=== PATIENT | male | born 1965 | race Caucasian/White ===

== ENCOUNTER 2016-09-05 19:37 | Emergency (ER) | payer MEDICAID ==
[2015-12-09 14:01] VITALS: BMI 26.5
[~2016-09-05 19:37] MED LIST: ATARAX 25 MG TA25 MG PO; BUTRANS1 EAC1 TRANSDERM; CYMBALTA30 MG PO; ENDOCET 10-3251 TAB PO; EPIPEN0.3 MG/0.3 IM; HYDROCODONE-APA1 TAB PO; KENALOG 0.1 % O15 GM TOPICAL; NEURONTIN 300300 MG PO; PHENERGAN25 M1 PO; TRAZODONE HCL50 MG PO; ZYLOPRIM100 MG PO
[2016-09-05 20:34] LABS: BASOPHILS 0.3 % (0-2); EOSINOPHILS 1.4 % (0-7); HEMATOCRIT 40.2 % (42.0-54.0); HEMOGLOBIN 13.7 g/dL (13.5-17.5); IMMATURE GRANULOCYTES 0.3 % (0-5); MCH 32.9 pg (26.0-34.0); MCHC 34.1 g/dL (31.0-37.0); MCV 96.4 fL (80.0-100.0); MONOCYTES 9.6 % (2-11); NEUTROPHILS 71.4 % (40-80); RBC 4.17 10x6/uL (4.20-6.10); WBC 7.8 10x3/uL (4.8-10.8)
[2016-09-05 20:37] LABS: ALBUMIN 3.6 g/dL (3.4-5.0); ALKALINE PHOSPHATASE 81 U/L (46-116); ALT (SGPT) 18 U/L (10-68); BILIRUBIN - TOTAL 0.35 mg/dL (0.2-1.3); CALC OSMOLALITY 271 mosm/kg (275-300); CALCIUM 8.5 mg/dL (8.5-10.1); CARBON DIOXIDE 27.1 mmol/L (21.0-32.0); CHLORIDE - SERUM 101 mmol/L (98-107); CREATININE - SERUM 0.8 mg/dL (0.6-1.3); GLUCOSE 93 mg/dL (74-106); POTASSIUM - SERUM 3.9 mmol/L (3.5-5.1); PROTEIN - SERUM 7.3 g/dL (6.4-8.2); SODIUM 137 mmol/L (136-145); UREA NITROGEN 6 mg/dL (7-18); eGFR NON AFRICAN AMERICAN > 90 mL/min (90-120)
[2016-09-05 20:45] LABS: PLATELET COUNT 28 10x3/uL (130-400)
[2016-09-05 21:15] LABS: PLATELET ESTIMATE DECREASED
[2016-09-05 21:44] LABS: APPEARANCE CLEAR (CLEAR); COLOR YELLOW (YELLOW); LEUKOCYTE ESTERASE NEGATIVE (NEGATIVE); NITRITE NEGATIVE (NEGATIVE)
[2016-09-05 21:45] LABS: BILIRUBIN NEGATIVE (NEGATIVE); GLUCOSE NEGATIVE (NEGATIVE); KETONE NEGATIVE (NEGATIVE); PROTEIN NEGATIVE (NEGATIVE); UROBILINOGEN NORMAL (NORMAL)
== END 2016-09-05 22:21 | disposition home or self-care (01) ==
LOC: D.ER 19:37
PROVIDERS: Emergency Medicine; Physician Assistant Medical
DX: S50.811A Abrasion of right forearm, initial encounter (principal); X58.XXXA Exposure to other specified factors, initial encounter; D69.3 Immune thrombocytopenic purpura; F17.200 Nicotine dependence, unspecified, uncomplicated

== ENCOUNTER 2016-09-06 10:00 | Outpatient (CLI) | payer MEDICAID ==
[~2016-09-06] VITALS: Ht 180.3 cm; Wt 90.9 kg
[2016-09-06 10:23] VITALS: BP 116/96; Ht 180.3 cm; Wt 90.9 kg
--- NOTE | 2016-09-06 15:30 | NUR ---
1300 PLATELETS CHECKED @ BEDSIDE WITH MATCHING CORRALES TRANSFUSION #, HOSPITAL # PER Fuentes RETANA R.N. & Jayna FARIA. Jaylon.N.. Fuentes RETANA R.N. 1305 PLATELET INFUSION BEGUN BY Jayna FARIA R.N.. Fuentes RETANA R.N. 1315 PLATELET INFUSION COMPLETED. 0.9% NACL INFUSING TO FLUSH TUBING. PT AWAKE & ALERT. NO COMPLAINTS OF SHORTNESS OF BREATH, PAIN, OR ITCHING. Fuentes RETANA R.N. 1415 IV COMPLETED. IV DC'ED WITH CATH INTACT. NO COMPLAINTS VOICED. GIVEN DISCHARGE INSTRUCTIONS INCLUDING MED REC., & POST TRANSFUSION INSTRUCTIONS SHEET. PT VOICED UNDERSTANDING. RELEASED AMBULATORY FROM OPS. Fuentes RETANA R.N.
== END 2016-09-06 14:15 | disposition home or self-care (01) ==
LOC: D.OPS 10:00
DX: D64.9 Anemia, unspecified (principal)

== ENCOUNTER 2017-05-09 12:48 | Emergency (ER) | payer MEDICAID ==
[2016-09-06 10:23] VITALS: BMI 27.9
[2017-05-09 13:46] LABS: BASOPHILS 0.4 % (0-2); EOSINOPHILS 0.7 % (0-7); HEMATOCRIT 45.9 % (42.0-54.0); HEMOGLOBIN 15.7 g/dL (13.5-17.5); IMMATURE GRANULOCYTES 0.1 % (0-5); LYMPHOCYTES 11.8 % (15-50); MCH 33.5 pg (26.0-34.0); MCHC 34.2 g/dL (31.0-37.0); MCV 97.9 fL (80.0-100.0); MONOCYTES 10.8 % (2-11); NEUTROPHILS 76.2 % (40-80); RBC 4.69 10x6/uL (4.20-6.10); RDW 13.1 % (11.5-14.5); WBC 7.4 10x3/uL (4.8-10.8)
[2017-05-09 13:56] LABS: APTT 26.5 SECONDS (22.8-39.4); INR 1.03 (0.85-1.17); PROTIME 13.1 SECONDS (11.6-15.0)
[2017-05-09 14:07] LABS: ALBUMIN 3.9 g/dL (3.4-5.0); ALKALINE PHOSPHATASE 96 U/L (46-116); ALT (SGPT) 36 U/L (10-68); BILIRUBIN - TOTAL 1.03 mg/dL (0.2-1.3); CALC OSMOLALITY 277 mosm/kg (275-300); CALCIUM 9.5 mg/dL (8.5-10.1); CARBON DIOXIDE 23.8 mmol/L (21.0-32.0); CHLORIDE - SERUM 102 mmol/L (98-107); CREATININE - SERUM 0.9 mg/dL (0.6-1.3); GLUCOSE 114 mg/dL (74-106); LIPASE 216 U/L (73-393); PROTEIN - SERUM 8.1 g/dL (6.4-8.2); SODIUM 139 mmol/L (136-145); UREA NITROGEN 9 mg/dL (7-18); eGFR NON AFRICAN AMERICAN > 90 mL/min (90-120)
[2017-05-09 14:13] LABS: PLATELET ESTIMATE DECREASED
[2017-05-09 14:16] LABS: PLATELET COUNT 32 10x3/uL (130-400)
[2017-05-09 14:36] LABS: APPEARANCE CLEAR (CLEAR); BILIRUBIN 2+ (NEGATIVE); COLOR DK YELLOW (YELLOW); GLUCOSE NEGATIVE (NEGATIVE); KETONE MODERATE mg/dL (NEGATIVE); NITRITE NEGATIVE (NEGATIVE); PROTEIN NEGATIVE (NEGATIVE); UROBILINOGEN NORMAL (NORMAL)
[2017-05-09 14:41] LABS: UDS - AMPHET NEGATIVE QUAL (NEGATIVE); UDS - BARB NEGATIVE QUAL (NEGATIVE); UDS - BENZO POSITIVE QUAL (NEGATIVE); UDS - COCAINE NEGATIVE QUAL (NEGATIVE); UDS - OPIATE POSITIVE QUAL (NEGATIVE); UDS - PCP NEGATIVE QUAL (NEGATIVE); UDS - THC NEGATIVE QUAL (NEGATIVE)
[2017-05-09 14:45] LABS: RED CELLS - URINE 0-5 /hpf (0-5)
[2017-05-09 14:46] LABS: BACTERIA FEW /hpf (NONE SEEN)
[2017-05-09 14:47] LABS: MUCUS <1+ /lpf (NONE SEEN)
== END 2017-05-09 18:20 | disposition home or self-care (01) ==
LOC: D.ER 12:48
PROVIDERS: Family Medicine; Nurse Practitioner Family
DX: R10.9 Unspecified abdominal pain (principal); K86.9 Disease of pancreas, unspecified

== ENCOUNTER 2017-06-23 06:40 | Day surgery (SDC) | payer MEDICAID ==
[~2017-06-23] VITALS: Ht 180.3 cm; Wt 86.4 kg
--- NOTE | ~2017-06-23 | OP ---
PATIENT NAME: VISHNU CONLEY MEDICAL RECORD: [id number] :61 LOCATION:D.OPS ADMISSION DATE: SURGEON: MO BHAGAT MD DATE OF OPERATION: 06/23/2017 POSTOPERATIVE DIAGNOSES: 1. Epigastric pain. 2. Gastroesophageal reflux disease. 3. Hypertension. 4. Lupus. 5. Gout. 6. Pancreatic pseudocyst. 7. Traumatic diaphragmatic hernia. POSTOPERATIVE DIAGNOSES: 1. Epigastric pain. 2. Gastroesophageal reflux disease. 3. Hypertension. 4. Lupus. 5. Gout. 6. Pancreatic pseudocyst. 7. Traumatic diaphragmatic hernia. 8. Hiatal hernia. PROCEDURE: EGD with biopsy. SURGEON: Mo Bhagat MD REPORT OF PROCEDURE: An Olympus endoscope was advanced through the mouth and esophagus through the stomach and into the duodenum. We were able to get to the second or third portion of the duodenum and saw no evidence of any inflammation. As we pulled back, there was no sign of any masses, lesions, or ulcerations. We got to the pylorus of the stomach. There was some inflammation of the pylorus and body of the stomach. A biopsy was taken from the area around the pylorus. As we retroflexed the camera, we could see the patient had a small hiatal hernia, which was probably about a 1.5 to 2 cm in length. There were no masses, lesions or ulcerations visible in the stomach. The rugae of the fundus of the stomach were enlarged and swollen. The GE junction appeared normal in caliber and closed appropriately. Inside of the hiatal hernia, the patient had linear ulcerations present extending about 3 cm up the esophagus. Biopsies were taken times 2 from these areas of ulceration. There was some mild bleeding from these. We irrigated out the area thoroughly and assured there was no sign of any injury to surrounding structures. At this point, the insufflation was removed and the endoscope was pulled back slowly through the esophagus, revealing no signs of any masses, lesions, or strictures. COMPLICATIONS: None. CONDITION: Stable. ANESTHESIA: TIVA. BLOOD LOSS: Minimal. TRANSINT:[id number] Voice Confirmation ID: [id number] DOCUMENT ID: [id number] OPERATIVE REPORT [id number] VISHNU CONLEY MO BHAGAT MD at 0771 CC: [id number] DICTATION DATE: 06/23/17 1204 [employer]AL[employer] ENGINEER: 06/24/17 0313 [facility] 06/23/17 [facility] [address] [id number]
[2017-06-23 08:18] VITALS: BP 129/80; Ht 180.3 cm; Wt 86.4 kg
[2017-06-23 08:34] LABS: BASOPHILS 0.6 % (0-2); EOSINOPHILS 0.7 % (0-7); HEMATOCRIT 37.1 % (42.0-54.0); HEMOGLOBIN 12.9 g/dL (13.5-17.5); IMMATURE GRANULOCYTES 0.2 % (0-5); LYMPHOCYTES 23.6 % (15-50); MCH 33.9 pg (26.0-34.0); MCHC 34.8 g/dL (31.0-37.0); MCV 97.4 fL (80.0-100.0); MONOCYTES 9.6 % (2-11); NEUTROPHILS 65.3 % (40-80); RBC 3.81 10x6/uL (4.20-6.10); RDW 13.1 % (11.5-14.5); WBC 5.4 10x3/uL (4.8-10.8)
[2017-06-23 08:38] LABS: PLATELET COUNT 44 10x3/uL (130-400)
[2017-06-23 08:39] LABS: CALC OSMOLALITY 287 mosm/kg (275-300); CALCIUM 8.5 mg/dL (8.5-10.1); CARBON DIOXIDE 29.5 mmol/L (21.0-32.0); CHLORIDE - SERUM 107 mmol/L (98-107); CREATININE - SERUM 0.8 mg/dL (0.6-1.3); GLUCOSE 85 mg/dL (74-106); POTASSIUM - SERUM 4.3 mmol/L (3.5-5.1); SODIUM 145 mmol/L (136-145); UREA NITROGEN 12 mg/dL (7-18); eGFR NON AFRICAN AMERICAN > 90 mL/min (90-120)
[2017-06-23 08:49] LABS: PLATELET ESTIMATE DECREASED
== END 2017-06-23 12:40 | disposition home or self-care (01) ==
LOC: D.OPS 06:40
PROVIDERS: Surgery
DX: R10.13 Epigastric pain (principal); K21.9 Gastro-esophageal reflux disease without esophagitis; I10 Essential (primary) hypertension; M32.9 Systemic lupus erythematosus, unspecified; M10.9 Gout, unspecified; K86.3 Pseudocyst of pancreas; K44.9 Diaphragmatic hernia without obstruction or gangrene; Z01.812 Encounter for preprocedural laboratory examination

== ENCOUNTER → 2017-07-03 10:33 | Outpatient (CLI) | payer MEDICAID ==
[2017-06-23 08:18] VITALS: BMI 26.5
[2017-07-03 11:04] LABS: BASOPHILS 0.2 % (0-2); EOSINOPHILS 0.2 % (0-7); HEMATOCRIT 38.1 % (42.0-54.0); HEMOGLOBIN 13.4 g/dL (13.5-17.5); IMMATURE GRANULOCYTES 0.4 % (0-5); LYMPHOCYTES 12.7 % (15-50); MCH 33.5 pg (26.0-34.0); MCHC 35.2 g/dL (31.0-37.0); MCV 95.3 fL (80.0-100.0); MEAN PLATELET VOLUME 12.6 fL (7.4-10.4); MONOCYTES 6.1 % (2-11); NEUTROPHILS 80.4 % (40-80); RDW 14.2 % (11.5-14.5)
[2017-07-03 11:09] LABS: PLATELET COUNT 47 10x3/uL (130-400)
[2017-07-03 11:33] LABS: ALBUMIN 3.6 g/dL (3.4-5.0); ALT (SGPT) 44 U/L (10-68); CALC OSMOLALITY 282 mosm/kg (275-300); CALCIUM 9.1 mg/dL (8.5-10.1); CARBON DIOXIDE 26.2 mmol/L (21.0-32.0); CHLORIDE - SERUM 103 mmol/L (98-107); CREATININE - SERUM 0.7 mg/dL (0.6-1.3); GLUCOSE 90 mg/dL (74-106); LIPASE 249 U/L (73-393); POTASSIUM - SERUM 3.8 mmol/L (3.5-5.1); SODIUM 143 mmol/L (136-145); UREA NITROGEN 8 mg/dL (7-18); eGFR NON AFRICAN AMERICAN > 90 mL/min (90-120)
[2017-07-03 11:52] LABS: ALKALINE PHOSPHATASE 79 U/L (46-116); BILIRUBIN - TOTAL 0.41 mg/dL (0.2-1.3); PROTEIN - SERUM 7.2 g/dL (6.4-8.2)
[2017-07-03 11:53] LABS: AMYLASE - SERUM 300 U/L (25-115)
== END | disposition home or self-care (01) ==
LOC: D.LAB 10:33
PROVIDERS: Surgery
DX: R10.9 Unspecified abdominal pain (principal)

== ENCOUNTER → 2017-07-11 09:00 | Outpatient (CLI) | payer MEDICAID ==
[2017-06-23 08:18] VITALS: BMI 26.5
== END | disposition home or self-care (01) ==
LOC: D.OPS 09:00
DX: K21.9 Gastro-esophageal reflux disease without esophagitis (principal); K44.9 Diaphragmatic hernia without obstruction or gangrene; K22.70 Barrett's esophagus without dysplasia; Z01.810 Encounter for preprocedural cardiovascular examination; Z01.811 Encounter for preprocedural respiratory examination; Z01.812 Encounter for preprocedural laboratory examination

== ENCOUNTER 2017-10-03 05:20 | Day surgery (SDC) | payer MEDICAID ==
[2017-10-02 10:35] LABS: BASOPHILS 0.9 % (0-2); EOSINOPHILS 0.3 % (0-7); HEMATOCRIT 34.5 % (42.0-54.0); HEMOGLOBIN 12.2 g/dL (13.5-17.5); IMMATURE GRANULOCYTES 0.3 % (0-5); LYMPHOCYTES 16.2 % (15-50); MCH 34.7 pg (26.0-34.0); MCHC 35.4 g/dL (31.0-37.0); MEAN PLATELET VOLUME 11.2 fL (7.4-10.4); MONOCYTES 16.1 % (2-11); NEUTROPHILS 66.2 % (40-80); RBC 3.52 10x6/uL (4.20-6.10); RDW 14.1 % (11.5-14.5); WBC 5.9 10x3/uL (4.8-10.8)
[2017-10-02 10:44] LABS: CALC OSMOLALITY 274 mosm/kg (275-300); CALCIUM 8.4 mg/dL (8.5-10.1); CARBON DIOXIDE 30.3 mmol/L (21.0-32.0); CHLORIDE - SERUM 99 mmol/L (98-107); CREATININE - SERUM 0.6 mg/dL (0.6-1.3); GLUCOSE 108 mg/dL (74-106); POTASSIUM - SERUM 3.7 mmol/L (3.5-5.1); SODIUM 138 mmol/L (136-145); UREA NITROGEN 8 mg/dL (7-18); eGFR NON AFRICAN AMERICAN > 90 mL/min (90-120)
[2017-10-02 10:46] LABS: PLATELET COUNT 64 10x3/uL (130-400)
[~2017-10-03] VITALS: Ht 180.3 cm; Wt 84.5 kg
--- NOTE | ~2017-10-03 | OP ---
PATIENT NAME: VISHNU CONLEY MEDICAL RECORD: [id number] :61 LOCATION:D.OPS ADMISSION DATE: SURGEON: PARVEZ BHAGAT MD DATE OF OPERATION: 10/03/2017 PREOPERATIVE DIAGNOSES: 1. GERD with hiatal hernia. 2. Banda's esophagus. 3. Pancreatic pseudocyst. 4. Traumatic diaphragmatic hernia. 5. Lupus erythematosus. 6. Hypertension. 7. Gout. 8. Fibromyalgia. 9. [place] spotted fever. POSTOPERATIVE DIAGNOSES: 1. GERD with hiatal hernia. 2. Banda's esophagus. 3. Pancreatic pseudocyst. 4. Traumatic diaphragmatic hernia. 5. Lupus erythematosus. 6. Hypertension. 7. Gout. 8. Fibromyalgia. 9. [place] spotted fever. PROCEDURES: 1. Repair of 1.5-cm traumatic diaphragmatic hernia. 2. Drainage of 3-cm pancreatic tail pseudocyst. 3. Laparoscopic Sona with hiatal hernia repair. SURGEON: Parvez Bhagat MD TERRAZZO GRINDER: Candi Arreaga APRN REPORT OF OPERATION: The patient's abdomen was prepped and draped in sterile fashion. A Veress needle was inserted in the left upper quadrant and the abdomen was insufflated. An 11-mm Visiport trocar was inserted in the midline just above the umbilicus. At this point, we could visualize the Veress needle and there was no sign of any injury to bowel or surrounding structures. The Veress needle was removed. An 11-mm trocar was placed in the left subcostal region. We then placed a 5-mm trocar in the epigastrium, a 5-mm trocar in the right lateral subcostal region, and a final 5-mm trocar in the left lateral abdomen. The patient's left upper quadrant was inspected and a liver retractor was inserted to elevate the left lobe of the liver. We could see that there were some attachments to the left side of the diaphragm, consistent with known history of a traumatic diaphragmatic hernia. The peritoneal attachments were taken down, revealing fatty tissue within the hernia sac. All of this fatty tissue was eviscerated out of the hernia defect and eventually we were able to clear off the hernia defect and noted that it was about 1.5 cm in greatest diameter. We penetrated through the hernia defect with the scope and inspected inside the hernia sac. At this point, we could see there was no sign of any other foreign bodies or material inside the hernia defect. The hernia defect was then reapproximated transversely using interrupted #0 Polydeks times 3. OPERATIVE REPORT [id number] VISHNU CONLEY This made good approximation of the tissues. There was no sign of any bleeding at this point. We then took down the lesser omentum using Harmonic scalpel up to the right side of the right carole. 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 This was protected during dissection. We continued our dissection up to the right side of the right carole and extended up into the thoracic cavity. We took down all the attachments up in the thoracic cavity to free up the patient's fundus and distal esophagus. As we went as far anteriorly and posteriorly as possible, then we approached the greater curvature of the stomach and took down the short gastrics using Harmonic scalpel to the left side of the right carole. Again, we continued our dissection anteriorly and posteriorly as far as possible and up into the thoracic cavity. At this point, we had a 360-degree inspection of the distal esophagus and the fundus of the stomach easily rested in the abdomen including approximately 1-2 cm of the distal esophagus. At this point, when we were in the lesser sac, we rotated the stomach over and inspected the distal aspect of the pancreatic tail, where there was known to be at 3.3-cm cystic lesion near the pancreas. This appeared to be most consistent by imaging with a pancreatic pseudocyst, but it had not resolved despite continued observation. The peritoneum was dissected free from overlying the cyst. We were eventually able to dissect around the cystic cavity. We eventually penetrated into the cystic cavity and there was spillage of some cottage cheese-type farley material. This was irrigated and suctioned free until the cyst cavity was empty. I did not see any evidence of any drainage in the cyst. The large portion of the cyst wall was removed using Harmonic scalpel and sent off for permanent specimen. The area was irrigated out one last time and any bleeding that was found was treated with Harmonic scalpel. We then approached the hiatal hernia. This was reapproximated with interrupted #0 Polydeks times 2. We then performed a 360-degree Sona wrap of the fundus of the stomach around the distal esophagus. This was completed with interrupted #0 Polydeks times 3, incorporating a bite of the esophagus with the top and the bottom stitch. The wrap appeared to be in good position and did not appear to be too tight. The indwelling orogastric tube was easily removed after completion of the wrap. We inspected the area and saw no signs of any active surgical bleeding. At this point, a 15-Northern Irish Gregor drain was inserted through the left lateral 5-mm trocar with the distal tip of it placed in the pancreatic pseudocyst with the remainder into the remaining sac of the pancreatic pseudocyst. This was sutured into place with 3-0 nylon. At this point, the liver retractor was removed. The 11-mm trocar site fascias were closed with interrupted #0 Vicryls using a Ramirez-Melinda suture passer device. The ports and insufflation were then removed. The subcutaneous tissues were all irrigated out with normal saline and then infused with a total of 10 mL of 0.25% Marcaine with epinephrine. The skin incisions were closed with subcutaneous 5-0 Monocryl and dressed appropriately. COMPLICATIONS: None. CONDITION: Stable. ANESTHESIA: General endotracheal and local. BLOOD LOSS: 50 mL. TRANSINT:[id number] Voice Confirmation ID: [id number] DOCUMENT ID: [id number] OPERATIVE REPORT [id number] VISHNU CONLEY CHRISTIAN MD at 1110 CC: [id number] DICTATION DATE: 10/03/17 1353 GEL COATER: 10/03/17 1435 [facility] 10/04/[address] [id number]
[~2017-10-03 05:20] MED LIST changes: +LISINOPRIL10 MG PO
[2017-10-03 08:23] VITALS: BP 114/87; BMI 24.4
[2017-10-03 15:12] VITALS: BP 127/90
[2017-10-03 15:56] VITALS: BP 127/90
[2017-10-03 15:56] LABS: BASOPHILS 0.1 % (0-2); EOSINOPHILS 0 % (0-7); HEMATOCRIT 32.8 % (42.0-54.0); HEMOGLOBIN 11.1 g/dL (13.5-17.5); IMMATURE GRANULOCYTES 0.2 % (0-5); LYMPHOCYTES 5.3 % (15-50); MCH 34.5 pg (26.0-34.0); MCHC 33.8 g/dL (31.0-37.0); MEAN PLATELET VOLUME 12.7 fL (7.4-10.4); MONOCYTES 6.4 % (2-11); RBC 3.22 10x6/uL (4.20-6.10)
[2017-10-03 16:07] LABS: MCV 101.9 fL (80.0-100.0); PLATELET COUNT 44 10x3/uL (130-400); WBC 10.7 10x3/uL (4.8-10.8)
[2017-10-03 18:14] VITALS: BP 129/70; Ht 180.3 cm; Wt 84.5 kg
[2017-10-03 20:15] VITALS: BP 113/76
[2017-10-04 05:28] VITALS: BP 117/76
[2017-10-04 05:56] LABS: BASOPHILS 0.2 % (0-2); EOSINOPHILS 0.5 % (0-7); HEMATOCRIT 28.5 % (42.0-54.0); HEMOGLOBIN 9.6 g/dL (13.5-17.5); IMMATURE GRANULOCYTES 0.1 % (0-5); LYMPHOCYTES 14.5 % (15-50); MCH 34.2 pg (26.0-34.0); MCHC 33.7 g/dL (31.0-37.0); MCV 101.4 fL (80.0-100.0); MEAN PLATELET VOLUME 11.8 fL (7.4-10.4); MONOCYTES 10.6 % (2-11); NEUTROPHILS 74.1 % (40-80); RBC 2.81 10x6/uL (4.20-6.10); RDW 14.3 % (11.5-14.5); WBC 8.8 10x3/uL (4.8-10.8)
[2017-10-04 06:12] LABS: CALC OSMOLALITY 277 mosm/kg (275-300); CALCIUM 7.4 mg/dL (8.5-10.1); CARBON DIOXIDE 26.4 mmol/L (21.0-32.0); CHLORIDE - SERUM 105 mmol/L (98-107); CREATININE - SERUM 0.7 mg/dL (0.6-1.3); GLUCOSE 82 mg/dL (74-106); POTASSIUM - SERUM 3.3 mmol/L (3.5-5.1); SODIUM 141 mmol/L (136-145); UREA NITROGEN 7 mg/dL (7-18); eGFR NON AFRICAN AMERICAN > 90 mL/min (90-120)
[2017-10-04 06:32] LABS: PLATELET COUNT 53 10x3/uL (130-400)
[2017-10-04 09:12] VITALS: BP 127/79
[2017-10-04 11:00] VITALS: BP 105/68
[2017-10-04 12:08] VITALS: BP 101/60
[2017-10-04 16:05] VITALS: BP 126/69
[2017-10-04] MEDS ORDERED: ZOFRAN ODT4 MG/UDTAB PO (16:44)
[2017-10-04] MEDS ORDERED: REGLAN10 MG PO (16:44)
[2017-10-04] MEDS ORDERED: HYDROCODONE-APA1 TAB PO (16:45)
== END 2017-10-04 18:05 | disposition home or self-care (01) ==
LOC: D.M2 05:20 → D.OPS 05:20 → D.PAN 08:00 → D.OPS 08:00 → D.M2 15:11 → D.OPS 10-04 18:05
PROVIDERS: Surgery
DX: K21.9 Gastro-esophageal reflux disease without esophagitis (principal); K44.9 Diaphragmatic hernia without obstruction or gangrene; K22.70 Barrett's esophagus without dysplasia; K86.3 Pseudocyst of pancreas; M32.9 Systemic lupus erythematosus, unspecified; I10 Essential (primary) hypertension; M10.9 Gout, unspecified; M79.7 Fibromyalgia; A77.0 Spotted fever due to Rickettsia rickettsii; Z01.812 Encounter for preprocedural laboratory examination

== ENCOUNTER → 2018-11-19 08:37 | Outpatient (CLI) | payer MEDICAID ==
[2017-10-03 18:14] VITALS: BMI 26.0
[~2018-11-19 08:37] MED LIST changes: +REGLAN10 MG PO; +ZOFRAN ODT4 MG/UDTAB PO
== END | disposition home or self-care (01) ==
LOC: D.CT 08:37
PROVIDERS: ATTEND Family Medicine
DX: R23.3 Spontaneous ecchymoses (principal)

== ENCOUNTER → 2019-08-12 | Emergency (ER) | payer MEDICAID ==
[~2019-08-12] VITALS: Ht 180.3 cm; Wt 90.9 kg
[~2019-08-12] MED LIST changes: +BUPROPION XL150 MG; +SEROQUEL25 MG
[2019-08-12 21:13] VITALS: BP 146/94; Ht 180.3 cm; Wt 90.9 kg
== END | disposition home or self-care (01) ==
LOC: D.ER 21:07
DX: S60.221A Contusion of right hand, initial encounter (principal); W19.XXXA Unspecified fall, initial encounter; Y93.9 Activity, unspecified; Y92.9 Unspecified place or not applicable; I10 Essential (primary) hypertension; K21.9 Gastro-esophageal reflux disease without esophagitis; M79.641 Pain in right hand